=== PATIENT | male | born 1980 | race Caucasian/White ===

== ENCOUNTER 2016-08-12 11:27 | Emergency (ER) | payer BC ==
[2016-08-12] MEDS ORDERED: KETOROLAC 15 MG/1 ML VIAL IVP ONE (11:42)
[2016-08-12] MEDS ORDERED: Clindamycin 900mg (Premix) 900 MG in Dextrose 1 BAG IV ONE (11:42)
[2016-08-12] MEDS: NORMAL SALINE 10 ML SYRINGE FLUSH IVP PRN ×3 (11:47→12:54)
[2016-08-12 11:57] VITALS: TEMP 98
[2016-08-12 12:07] LABS: BASOPHILS # (AUTO) 0.02 10*3/UL; BASOPHILS % (AUTO) 0.2 % (0-1); EOSINOPHILS % (AUTO) 1.4 % (0-8); HEMATOCRIT 42.9 % (42.0-52.0); HEMOGLOBIN 16.2 g/dL (14.0-18.0); IMM GRAN % (AUTO) 0.4 % (0-5); IMM GRAN# (AUTO) 0.04 10*3/UL; LYMPHOCYTES # (AUTO) 1.46 10*3/uL; LYMPHOCYTES % (AUTO) 15.3 % (10-50); MEAN CORPUSCULAR HEMOGLOBIN 28.6 PG (27-31); MEAN CORPUSCULAR HGB CONC 37.8 g/dL (33-37); MEAN PLATELET VOLUME 9.1 FL (7.4-12.2); MONOCYTES # (AUTO) 0.59 10*3/UL (0.3-0.8); MONOCYTES % (AUTO) 6.2 % (5-15); NEUTROPHILS # (AUTO) 7.32 10*3/UL; NEUTROPHILS % (AUTO) 76.5 % (50-80); RDW COEFFICIENT OF VARIATION 13.3 % (11.5-14.5); RED BLOOD COUNT 5.67 10^6/uL (4.70-6.10); WHITE BLOOD COUNT 9.56 10^3/uL (4.8-10.8)
--- NOTE | 2016-08-12 12:20 | PDOC ---
Upper Extremity Problem HPI - General Chief Complaint: Upper Extremity Problem/Injury Stated Complaint: LEFT HAND PAIN SWELLING Date Seen by Provider: 08/12/16 Time Seen by Provider: 11:40 Source: POSITIVE: Patient Exam Limitations: POSITIVE: No limitations Nurse's Notes Reviewed & Considered: Yes - History of Present Illness Initial Comments: The patient is a 36-year-old male presents to the emergency department with left wrist pain and swelling. He states that 2 days ago his left wrist seems stiff after he slept on his hand in an unusual position. He started to develop some increased pain and swelling yesterday which has significantly worsened today. Today he has swelling to his whole left hand. Most of the pain remains in the area of the left wrist. He does have a history of gout however has not ever had a gout flare in his upper extremities. He has had gout flares in his ankles and knees previously. He is on some type of maintenance medication for gout although he is unsure exactly what he takes. He denies fevers or chills or injury to his hand or wrist. He does have a history of psoriasis which primarily affects his hands. He uses topical treatment for this. - Patient Home Medications Home Medications: Home Medications Clindamycin HCl 300 mg PO TID #21 capsule 08/12/16 Colchicine 0.6 mg PO DAILY 08/12/16 Hydrocodone/Acetaminophen [Lucernemines 5-325 Tablet] 1 each PO Q6H PRN #10 tablet Indomethacin 50 mg PO Q8H PRN #20 capsule 08/12/16 Probenecid 500 mg PO DAILY 08/12/16 - Patient Allergies Allergies/Adverse Reactions: Allergies Allergy/AdvReac Type Severity Reaction Status Date / Time No Known Allergies Allergy Verified 08/12/16 11:38 Past Medical History - heen HEENT History: Denies History Cardiovascular History: Denies History Respiratory History: Sleep Apnea Additional Respiratory History: NOSE THROAT SURGERY FOR IT Gastrointestinal History: Denies History Genitourinary History: Denies History Endocrine History: Denies History Musculoskeletal History: Gout Prosthesis or Implant: No Neurological History: Denies History Blood Disorders: Denies History Psychiatric History: Denies History Male Reproductive History: Denies History Cancer History: Denies History In Past Year Been Physically Harmed or Verbally Threatened: No History of MDRO: No Tobacco Use: Never Smoker Alcohol Use: Rarely Substance Use Type: None Previous Surgical History: Yes Type / Date of Surgery: NASAL, VASECTOMY, LT KNEE SCOPE Anesthesia Reactions: No Significant Family History: No pertinent family hx Additional Family History: *PT HX OF PSORIASIS Past Medical History Reviewed: Reviewed - No Changes ROS - Limitations ROS Limitations: No Limitations Constitution: DENIES: Chills, Fever Cardiovascular: REPORTS: Denies Cardiac Symptoms Respiratory: REPORTS: Denies Resp Symptoms Neurological: REPORTS: Denies Neuro Symptoms Gastrointestinal: REPORTS: Denies GI Symptoms Upper Extremity Problem Exam - General Appearance General Appearance: POSITIVE: Alert, Cooperative, No Acute Distress - Upper Extremity Upper Extremity: POSITIVE: Other (Examination the left hand and wrist reveals marked swelling of the hand and wrist, no swelling or tenderness proximal to the wrist, he does have some dry scaly skin primarily over the MP joints on the dorsum of his hand, no obvious open wounds or drainage, no focal areas of induration or abscess, he does have tenderness to the wrist joint and pain with movement of the wrist joint, no evidence of vascular compromise) Vascular: POSITIVE: No Vascular Compromise - HEENT HEENT: POSITIVE: Head Inspection Nml - Respiratory / CVS Respiratory / CVS: POSITIVE: Breath Sounds Normal, Regular Rate & Rhythm, Heart Sounds Normal Peripheral Pulses: Radial (L): 2+ Upper Ext Problem Progress - Results Reviewed by me Lab Results Reviewed: Yes Lab Results:: Laboratory Results 08/12/16 Range/Units 11:47 WBC 9.56 (4.8-10.8) 10^3/uL RBC 5.67 (4.70-6.10) 10^6/uL Hgb 16.2 (14.0-18.0) g/dL Hct 42.9 (42.0-52.0) % MCV 75.7 L (80-90) FL MCH 28.6 (27-31) PG MCHC 37.8 H (33-37) g/dL RDW Std Deviation 36.4 L (39-50) fL RDW Coeff of Basil 13.3 (11.5-14.5) % Plt Count 236 (140-350) 10*3/uL MPV 9.1 (7.4-12.2) FL Immature Gran % (Auto) 0.4 (0-5) % Neut % (Auto) 76.5 (50-80) % Lymph % (Auto) 15.3 (10-50) % [place] % (Auto) 6.2 (5-15) % Eos % (Auto) 1.4 (0-8) % Baso % (Auto) 0.2 (0-1) % Immature Gran # (Auto) 0.04 10*3/UL Neut # (Auto) 7.32 10*3/UL Lymph # (Auto) 1.46 10*3/uL [place] # (Auto) 0.59 (0.3-0.8) 10*3/UL Eos # (Auto) 0.13 10*3/UL Baso # (Auto) 0.02 10*3/UL WBC Morphology Comment Normal morphology (NORM) Plt Morphology Comment Normal morphology (NORM) RBC Morph Comment Normal morphology (NORM) Sodium 139 (135-145) meq/L Potassium 4.1 (3.8-5.2) meq/L Chloride 102 (98-112) meq/L Carbon Dioxide 25 (23-33) meq/L Anion Gap 12 (5-20) BUN 15 (7-22) mg/dL Creatinine 1.0 (0.70-1.50) mg/dL Estimated GFR > 60 (>60 ml/min/1.73m(2)) BUN/Creatinine Ratio 15.00 (6-20) Glucose 121 H (78-110) mg/dL Calculated Osmolality 289.0 (267-292) mOsm/kg Uric Acid 7.7 (3.8-8.5) mg/dl Calcium 9.4 (8.7-10.7) mg/dL Total Bilirubin 0.7 (0.3-1.2) mg/dL AST 21 (21-57) IU/L ALT 37 (21-72) IU/L Alkaline Phosphatase 52 (38-126) IU/L C-Reactive Protein 2.6 H (0.0-0.9) mg/dL Total Protein 7.5 (6.1-8.0) g/dL Albumin 4.5 (3.5-4.8) g/dL Globulin 3.0 (2.50-4.10) g/dL Albumin/Globulin Ratio 1.50 (1.3-2.0) mg/g - Patient's Progress MDM / ED Course: An IV was established and the patient did receive Toradol 15 mg IV. At this point it is unclear whether this represents a gout flare which is most likely or if there is some component of cellulitis related to his psoriasis. Will treat as if there is some component of cellulitis and he did receive clindamycin 900 mg IV. His white blood cell count is normal and his CRP is mildly elevated. At this point I suspect this most likely represents a gouty flare however there is a possibility of cellulitis as well. He was continued on clindamycin 300 mg 3 times a day for 7 days and was also prescribed Indocin 50 mg every 8 hours and Lucernemines 5/325 every 6 hours as needed for pain. He is advised return to the emergency room if increased pain or swelling, fevers or chills, worsening or change in symptoms. He is advised follow-up with primary care in 3-5 days. - Consult Counseled: POSITIVE: Patient, RE: Lab Results, RE: DX, RE: Need for F/U Patient Care Time - Estimated PCT Patient Care Time (In Minutes): 20 Vital Signs - Recent Vital Signs Vital Signs: Vital Signs (Last 8 hours) Temp Pulse Pulse Resp BP BP Pulse Ox 08/12/16 13:09 94 16 149/90 98 08/12/16 11:36 98 F 105 H 18 173/119 95 - VS Reviewed Vital Signs Reviewed: Yes Discharge Clinical Impression: Gout flare, Cellulitis Condition: Stable Prescriptions / Orders: Clindamycin HCl 300 mg PO TID #21 capsule Indomethacin 50 mg PO Q8H PRN #20 capsule PRN Reason: Pain Hydrocodone/Acetaminophen [Lucernemines 5-325 Tablet] 1 each PO Q6H PRN #10 tablet PRN Reason: Pain Patient Instructions Given at Discharge: Cellulitis (ED), Gout (ED) Additional Instructions: The pain and swelling in the left wrist is most likely secondary to a gout flare. It is also possible there could be some component of soft tissue infection. Because of this year been started on antibiotics and should continue clindamycin 300 mg 3 times a day for 7 days. You've also been prescribed a strong anti-inflammatory Indocin 50 mg every 8 hours as needed for pain/swelling. You are also prescribed Lucernemines 5/325 which he can take one every 6 hours as needed for pain. Return to the emergency room if increased pain or swelling, fevers or chills, any worsening or change in symptoms. Follow-up with primary care in 3-5 days. Follow Up With: NONE,NONE [Primary Care Provider] -
[2016-08-12 12:24] LABS: PLATELET MORPHOLOGY COMMENT NORMAL MORPHOLOGY (NORM)
[2016-08-12 12:37] LABS: ASPARTATE AMINO TRANSFERASE 21 IU/L (21-57); BILIRUBIN,TOTAL 0.7 mg/dL (0.3-1.2); BLOOD UREA NITROGEN 15 mg/dL (7-22); C-REACTIVE PROTEIN 2.6 mg/dL (0.0-0.9); CALCIUM 9.4 mg/dL (8.7-10.7); CHLORIDE 102 meq/L (98-112); EST GLOMERULAR FILTRATION > 60 (>60 ml/min/1.73m(2)); GLUCOSE 121 mg/dL (78-110); POTASSIUM 4.1 meq/L (3.8-5.2); SODIUM 139 meq/L (135-145); TOTAL PROTEIN 7.5 g/dL (6.1-8.0); URIC ACID 7.7 mg/dl (3.8-8.5)
[2016-08-12 13:11] VITALS: RESP 16
== END 2016-08-12 13:12 | disposition home or self-care (01) ==
LOC: ER 11:27
DX: M10.9 Gout, unspecified (principal); L03.114 Cellulitis of left upper limb
CPT/HCPCS: 80053; 84550; 85025; 86140; 96365; 99282; 99283; J1885; J3490